=== PATIENT | male | born 1980 | race Caucasian/White ===

== ENCOUNTER 2022-06-23 00:22 | Emergency (ER) | payer SELFPAY ==
[2022-06-23] MEDS ORDERED: RT-ALBUTEROL HFA 8.5 GM INHALER IH STA (01:32)
[2022-06-23 02:11] VITALS: BP 129/92
--- NOTE | 2022-06-23 02:14 | ED General ---
General Chief Complaint: Cough/Cold/Flu Symptoms Stated Complaint: COUGH / CONGESTION Nursing Triage Note: PT ARRIVAL TO ER VIA PRIVATE VEHICLE FROM HOME WITH COMPLAINT OF COUGH/CONGESTION X5 DAYS. PT SEEN AT URGENT CARE AND STARTED ON PREDNISONE AND TESSALON PERLES FOR THE COUGH. PATIENT STATES THAT HE WAS STARTED ON THEM THURSDAY AND WAS TOLD IF NO BETTER COME BACK THURSDAY. Source of Information: Patient Exam Limitations: No Limitations History of Present Illness Date Seen by Provider: Jun 23, 2022 Time Seen by Provider: 00:30 Initial Comments This 41-year-old gentleman presents to the emergency room with complaints of shortness of breath and a heaviness of breathing, particularly when he lays flat. He has had flulike symptoms for the past 5 days including cough, congestion, shortness of breath, headache, body aches, and nausea. He reports testing in the clinic was negative for COVID and flu. He was prescribed Tessalon Perles and prednisone. Allergies and Home Medications Allergies Coded Allergies: No Known Drug Allergies (Unverified , 06/23/22) Patient Home Medication List Home Medication List Reviewed: Yes Review of Systems Review of Systems Constitutional: no symptoms reported EENTM: see HPI Respiratory: see HPI Cardiovascular: no symptoms reported Gastrointestinal: see HPI Genitourinary: no symptoms reported Musculoskeletal: no symptoms reported Skin: no symptoms reported Psychiatric/Neurological: See HPI Hematologic/Lymphatic: No Symptoms Reported Immunological/Allergic: no symptoms reported Past Zrbbklj-Wticty-Nuetmd Hx Patient Social History Tobacco Use?: Yes Tobacco type used: Cigarettes Smoking Status: Current Everyday Smoker Use of E-Cig and/or Vaping dev: No Substance use?: Yes Substance type: Marijuana Substance frequency: Once in a while Alcohol Use?: No Pt feels they are or have been: No Immunizations Up To Date Influenza Vaccine Up-to-Date: Yes; Up-to-Date Second COVID19 Vaccination Abdoulaye: UNKNOWN COVID19 Vaccine Certified Medical Technician: MODERNA Past Medical History Surgeries: Yes Orthopedic (Knee) Respiratory: No Cardiac: No Neurological: No Genitourinary: No Gastrointestinal: No Musculoskeletal: No Endocrine: No HEENT: No Cancer: No Psychosocial: No Physical Exam Vital Signs Vital Signs - First Documented Capillary Refill : Less Than 3 Seconds Height, Weight, BMI Height: '" Weight: lbs. oz. kg; BMI Method: General Appearance: No Apparent Distress, WD/WN, Obese HEENT: PERRL/EOMI, TMs Normal, Normal ENT Inspection, Pharynx Normal Neck: Normal Inspection; No JVD Respiratory: No Accessory Muscle Use, No Respiratory Distress, Wheezing Cardiovascular: Regular Rate, Rhythm, No Edema, No Murmur Gastrointestinal: Non Tender, Soft Extremity: Normal Inspection, No Pedal Edema Neurologic/Psychiatric: Alert, Oriented x3, No Motor/Sensory Deficits, Normal Mood/Affect Skin: Normal Color, Warm/Dry Progress/Results/Core Measures Suspected Sepsis SIRS Temperature: Pulse: 93 Respiratory Rate: 16 Blood Pressure 125 /93 Mean: 104 Results/Orders Lab Results Laboratory Tests Test 06/23/22 01:06 Range/Units Influenza Type A (RT-PCR) Not Detected Not Detecte Influenza Type B (RT-PCR) Not Detected Not Detecte SARS-CoV-2 RNA (RT-PCR) Not Detected Not Detecte My Orders Orders - KYLE LANDIS MD Covid 19 Inhouse Test (06/23/22 00:30) Influenza A And B By Pcr (06/23/22 00:30) Albuterol Inhaler (Albuterol) (06/23/22 01:32) Vital Signs/I&O 06/23/22 06/23/22 06/23/22 00:48 00:48 02:11 Temp 36.4 Pulse 93 84 Resp 16 16 B/P (MAP) 125/93 (104) 129/92 Pulse Ox 97 99 O2 Delivery Room Air Room Air Room Air Capillary Refill : Less Than 3 Seconds Blood Pressure Mean: 104 Progress Note : Progress Note Patient was treated with an albuterol inhaler with significant improvement. Flu and COVID test were negative. See discharge instructions for further discussion. Departure Impression Primary Impression: Acute bronchitis Qualified Codes: J20.9 - Acute bronchitis, unspecified Additional Impression: Wheezing Disposition: 01 HOME, SELF-CARE Condition: Improved Departure-Patient Inst. Decision time for Depature: 02:09 Referrals: [facility] (PCP/Family) Primary Care Physician Patient Instructions: How to Use a Metered Dose Inhaler ED, Bronchitis, Adult ED, Wheezing Add. Discharge Instructions: Your symptoms are most likely caused by a viral illness. The prednisone and inhaler should help you get through that illness and reduce your wheezing. Use the inhaler up to 4 puffs every 4 hours as needed for wheezing or shortness of breath. Do not exceed 4 puffs in a day 4-hour block of time. If you find yourself needing more doses, return to care for further evaluation. Smoking and dust exposure at work likely also are contributing factors. Work toward quitting smoking as fast as possible. Seek help from a primary care provider if needed to help you quit. Wear the available masks at work to reduce dust inhalation. If you think there may be an environmental component with allergies as well, you may try using an allergy medication such as Claritin (loratadine), Zyrtec (cetirizine), etc. Follow-up with your doctor or return to the ER if you have worsening symptoms despite following these instructions. All discharge instructions reviewed with patient and/or family. Voiced understanding. KYLE LANDIS MD Jun 23, 2022 02:14
== END 2022-06-23 02:23 | disposition home or self-care (01) ==
LOC: ER 00:25
DX: J20.9 Acute bronchitis, unspecified (principal); F17.210 Nicotine dependence, cigarettes, uncomplicated; Z20.822 Contact with and (suspected) exposure to COVID-19
CPT/HCPCS: 87636; 99283

== ENCOUNTER 2022-11-19 11:27 | Emergency (ER) | payer OTHER ==
[~2022-11-19] VITALS: Ht 175 cm; Wt 120.0 kg
--- NOTE | 2022-11-19 11:52 | ED Back Pain ---
General Chief Complaint: Back Problems Stated Complaint: LOWER BACK PAIN Nursing Triage Note: LOW MID TO RIGHT LOWER BACK PAIN X2 WEEKS. Source of Information: Patient Exam Limitations: No Limitations (ANANDA SMITH) History of Present Illness Date Seen by Provider: November 19, 2022 Time Seen by Provider: 11:50 Initial Comments Patient is a 42-year-old male presents ED with low back pain. Back pain started around 2 weeks ago. No trauma or known injury. States he has been picking heavy object at work but cannot recall any specific injury. Pain radiates from the spine to the flanks lower back. Worse with bending over, standing or movement. Gets relief when he sits down. No distal numbness and tingling to lower extremities, leg weakness, bowel or urine incontinence or saddle paresthesia. Denies taking thing for pain. No fever, night sweats, history of cancer. Denies any drug use. Denies of any hematuria, dysuria, fever, chills or history of kidney stones (ANANDA SMITH) Allergies and Home Medications Allergies Coded Allergies: No Known Drug Allergies (Unverified , 06/23/22) Patient Home Medication List Home Medication List Reviewed: Yes (ANANDA SMITH) Cyclobenzaprine HCl (Cyclobenzaprine HCl) 10 Mg Tablet, 10 MG PO TID Prescribed by: CARMEN HUTSON on 11/19/22 1230 Naproxen (Naproxen) 500 Mg Tablet, 500 MG PO Q12H Prescribed by: CARMEN HUTSON on 11/19/22 1230 Review of Systems Constitutional: No chills, No diaphoresis EENTM: No blurred vision, No double vision Respiratory: No cough, No dyspnea on exertion Cardiovascular: No chest pain Gastrointestinal: No abdominal pain, No diarrhea, No nausea Musculoskeletal: back pain, joint pain; No joint swelling; muscle pain Skin: No change in color, No change in hair/nails (ANANDA SMITH) All Other Systems Reviewed Negative Unless Noted: Yes (ANANDA SMITH) Past Toeesks-Bkurzh-Hdrmwd Hx Patient Social History Tobacco Use?: Yes Tobacco type used: Cigarettes Substance use?: Yes Substance type: Marijuana Alcohol Use?: No (ANANDA SMITH) Immunizations Up To Date Second COVID19 Vaccination Abdoulaye: UNKNOWN COVID19 Vaccine Management Trainee: UNKNOWN (ANANDA SMITH) Past Medical History Surgeries: Yes Orthopedic Respiratory: No Cardiac: No Neurological: No Genitourinary: No Gastrointestinal: No Musculoskeletal: No Endocrine: No HEENT: No Cancer: No Psychosocial: No (ANANDA SMITH) Physical Exam Vital Signs Vital Signs - First Documented 11/19/22 11:35 Temp 36.5 Pulse 100 Resp 16 B/P (MAP) 117/85 (96) Pulse Ox 98 O2 Delivery Room Air (KYLE LANDIS MD) Vital Signs Capillary Refill : Less Than 3 Seconds (ANANDA SMITH) Height, Weight, BMI Height: '" Weight: lbs. oz. kg; 39.00 BMI Method: General Appearance: No Apparent Distress, WD/WN HEENT: PERRL/EOMI, TMs Normal, Normal ENT Inspection Neck: Full Range of Motion, Normal Inspection, Non Tender Cardiovascular: Regular Rate, Rhythm, No Edema, No Gallop, No JVD Respiratory: Chest Non Tender, Lungs Clear, Normal Breath Sounds, No Accessory Muscle Use Gastrointestinal: Normal Bowel Sounds, No Organomegaly, No Pulsatile Mass, Non Tender, Soft Back: Vertebral Tenderness (Lumbar midline tenderness. Pain with flexion. No swelling, or redness. No flank tenderness. No left or right lower lumbar paraspinal muscle tenderness) Extremity: Normal Capillary Refill, Normal Inspection, Normal Range of Motion, Non Tender, Other Neurologic/Psychiatric: Alert, Oriented x3, No Motor/Sensory Deficits, Normal Mood/Affect, state's attorney II-XII Norm as Tested Skin: Warm/Dry (ANANDA SMITH) Progress/Results/Core Measures Results/Orders Lab Results Laboratory Tests Test 11/19/22 11:48 Range/Units Urine Color YELLOW Urine Clarity CLEAR Urine pH 6.0 5-9 Urine Specific [place] >=1.030 1.016-1.022 Urine Protein NEGATIVE NEGATIVE Urine Glucose (UA) NEGATIVE NEGATIVE Urine Ketones NEGATIVE NEGATIVE Urine Nitrite NEGATIVE NEGATIVE Urine Bilirubin NEGATIVE NEGATIVE Urine Urobilinogen 0.2 < = 1.0 MG/DL Urine Leukocyte Esterase NEGATIVE NEGATIVE Urine RBC (Auto) NEGATIVE NEGATIVE Urine RBC RARE /HPF Urine WBC NONE /HPF Urine Squamous Epithelial Cells RARE /HPF Urine Crystals NONE /LPF Urine Bacteria NEGATIVE /HPF Urine Casts NONE /LPF Urine Mucus SMALL H /LPF Urine Culture Indicated NO (KYLE LANDIS MD) Vital Signs/I&O 11/19/22 11/19/22 11:35 13:10 Temp 36.5 Pulse 100 91 Resp 16 B/P (MAP) 117/85 (96) 108/75 Pulse Ox 98 96 O2 Delivery Room Air Room Air (KYLE LANDIS MD) Blood Pressure Mean: 96 Departure Communication (PCP) Patient is a 42-year-old male who presents to the ED for lower back pain. Cannot recall any specific injury. No bowel or urine incontinence, saddle paresthesia. No neurological red flag findings. No fever, night sweats, history of cancer. Due to current complaint urinalysis was ordered to rule out hematuria which was negative. No radiating pain to the abdomen suggesting urolithiasis. No fever or urinary symptoms suggesting pyelonephritis, cystitis. CT scan of his lower spine secondary to increasing pain and radiating to the flank was positive for right-sided spondylolysis at L5-S1. No acute bony abno rmality. Patient was given dose of Toradol, Norflex and hydrocodone with some improvement of pain. Suspect more chronic finding. Discussed these results with patient. Recommend rest for the next 2 weeks. Discussed anti- inflammatories and muscle relaxers. Do not work with muscle relaxers. Recommend stretching. Pain likely from overuse. Potential muscular component. No sciatica or radiculopathy type pain at this time. Discussed ice and heat. Will discharge with anti-inflammatories. Outpatient follow-up with your primary care physician within the next week for further evaluation. Provided work note. Return precaution were discussed. (ANANDA SMITH) Impression Primary Impression: Back pain Additional Impression: Spondylolysis Disposition: 01 HOME, SELF-CARE Condition: Stable Departure-Patient Inst. Decision time for Depature: 12:29 (ANANDA SMITH) Referrals: [facility] (PCP/Family) Primary Care Physician Patient Instructions: Spondylolysis Add. Discharge Instructions: Recommend rest, stretching, anti-inflammatories to help with pain. Do not use Flexeril while at work. Recommend follow-up your PCP in 1 week for further evaluation. May require PT or further imaging. All discharge instructions reviewed with patient and/or family. Voiced understanding. Scripts Cyclobenzaprine HCl (Cyclobenzaprine HCl) 10 Mg Tablet 10 MG PO TID, #20 TAB Prov: ANANDA SMITH 11/19/22 Naproxen (Naproxen) 500 Mg Tablet 500 MG PO Q12H, #20 TAB Prov: ANANDA SMITH 11/19/22 Work/School Note: Work Release Form Date Seen in the Emergency Department: November 19, 2022 Return to Work: November 24, 2022 Restrictions: When returning to work recommend limiting walking, lifting for two weeks ATTENDING PHYSICIAN NOTE: I was physically present as attending physician in the emergency department during the care of this patient, but I was not directly involved in the decision making or delivery of care for this patient. (KYLE LANDIS MD) ANANDA SMITH November 19, 2022 11:52 KYLE LANDIS MD November 21, 2022 06:25
[2022-11-19] MEDS ORDERED: ORPHENADRINE 60 MG/2 ML (NORFLEX) AMP (ED ONLY) IM ONE (12:00)
[2022-11-19] MEDS ORDERED: HYDROcodone/APAP 5 MG/325 MG (LORTAB) TAB PO ONE (12:00)
[2022-11-19] MEDS ORDERED: KETOROLAC 30 MG/ML VIAL IVP ONE (12:00)
[2022-11-19 12:08] LABS: BILIRUBIN,URINE NEGATIVE (NEGATIVE); CLARITY,URINE CLEAR; COLOR,URINE YELLOW; GLUCOSE, URINE (UA) NEGATIVE (NEGATIVE); KETONES,URINE NEGATIVE (NEGATIVE); LEUKOCYTE ESTERASE ,URINE NEGATIVE (NEGATIVE); NITRITE,URINE NEGATIVE (NEGATIVE); PROTEIN,URINE NEGATIVE (NEGATIVE)
[2022-11-19 12:17] LABS: BACTERIA,URINE NEGATIVE /HPF; RBC,URINE RARE /HPF; SQUAMOUS EPITHELIAL CELL,UR RARE /HPF
--- NOTE | 2022-11-19 12:19 | Diagnostic Imaging Report ---
PROCEDURE: CT lumbar spine without contrast. TECHNIQUE: Multiple contiguous axial images were obtained through the lumbar spine without the use of intravenous contrast. Sagittal and coronal reformations were then performed. Auto Exposure Controls were utilized during the CT exam to meet ALARA standards for radiation dose reduction. INDICATION: Low back pain. No prior studies are available for comparison. FINDINGS: Curvature and alignment of the lumbar spine is normal. The vertebral body heights and disc spaces are fairly well maintained. No fracture or subluxation is identified. Patient does have a spondylolysis on the right side at the L5-S1 level. No spondylolisthesis is seen. IMPRESSION: Right-sided spondylolysis at L5-S1. No acute bony abnormality is detected. Dictated by: Dictated on workstation # [id number]
[2022-11-19] MEDS ORDERED: CYCL10TA25 PO (12:30)
[2022-11-19] MEDS ORDERED: NAPR-915 PO (12:30)
[2022-11-19 13:10] VITALS: BP 108/75
== END 2022-11-19 13:10 | disposition home or self-care (01) ==
LOC: EDUNIT# 11:27 → ER 11:31
DX: M47.817 Spondylosis without myelopathy or radiculopathy, lumbosacral region (principal); F17.210 Nicotine dependence, cigarettes, uncomplicated
CPT/HCPCS: 72131; 81000

== ENCOUNTER 2022-12-30 10:45 | Emergency (ER) | payer OTHER ==
[~2022-12-30] VITALS: Ht 172 cm; Wt 124.7 kg
[~2022-12-30 10:45] MED LIST: CYCL10TA25 PO; NAPR-915 PO
[2022-12-30 11:15] VITALS: BP_DIAS 92
--- NOTE | 2022-12-30 11:40 | ED Back Pain ---
General Chief Complaint: Back Problems Stated Complaint: LOWER BACK PAIN Nursing Triage Note: PT AMB TO [facility] 10 WITH C/O L LOW BACK PAIN FOR ALMOST 2 WEEKS. PT STATES IT STARTED ON THE R SIDE AND HAS NOW MOVED TO THE L THIS MORNING. PT SEEN AT [facility] 2 WEEKS AGO AND GIVEN NAPROXEN Source of Information: Patient Exam Limitations: No Limitations History of Present Illness Date Seen by Provider: Dec 30, 2022 Time Seen by Provider: 11:20 Initial Comments 42-year-old male presents to the ER with complaints of right lower back pain for the last week. Denies any known injury. He states that this morning he woke up and had pain in his left flank/side. He states that movement makes the pain w orse as well as getting up after sitting for a little while. He states that he has been resting and taking ibuprofen, last dose was yesterday. Patient was seen here approximately 1 month ago for lower back pain. He had a CT scan that showed spondylosis of L5-S1 on the right side. He denies urinary or bowel incontinence. Does report feeling as though his left lower leg wants to fall asleep. Patient is ambulatory. He was seen by Dr. Rinaldi last week and prescribed meloxicam and Flexeril. Patient states the last dose he took was yesterday. He denies fevers, abdominal pain, nausea, vomiting, dysuria, hematuria. He does report small amounts of diarrhea. States his last bowel movement was this morning and was soft. He states that normally he has a bowel movement 1-2 times a day, but over the last week he has only had a bowel movement approximately once every other day and the bowel movements are small. Past medical history includes bipolar disorder. Allergies and Home Medications Allergies Coded Allergies: No Known Drug Allergies (Unverified , 06/23/22) Patient Home Medication List Home Medication List Reviewed: Yes Cyclobenzaprine HCl (Cyclobenzaprine HCl) 10 Mg Tablet, 10 MG PO TID Prescribed by: CARMEN HUTSON on 11/19/22 1230 Methylprednisolone (Methylprednisolone Dose Pack) 4 Mg Tab.ds.pk, 4 MG PO UD Prescribed by: Niki Hathaway on 12/30/22 1240 Naproxen (Naproxen) 500 Mg Tablet, 500 MG PO Q12H Prescribed by: CARMEN HUTSON on 11/19/22 1230 Review of Systems Constitutional: see HPI Past Edofxng-Njajhm-Kkgvke Hx Patient Social History Tobacco Use?: Yes Tobacco type used: Cigarettes Substance use?: Yes Substance type: Marijuana Alcohol Use?: Yes Alcohol Frequency: Rarely Pt feels they are or have been: No Immunizations Up To Date First/Initial COVID19 Vaccinat: UNKNOWN Second COVID19 Vaccination Abdoulaye: UNKNOWN Third COVID19 Vaccination Date: UNKNOWN Past Medical History Surgery/Hospitalization HX: BIPOLAR, HTN R KNEE SURGERY Surgeries: Yes Orthopedic Respiratory: No Cardiac: No Neurological: No Genitourinary: No Gastrointestinal: No Musculoskeletal: No Endocrine: No HEENT: No Cancer: No Psychosocial: No Physical Exam Vital Signs Vital Signs - First Documented 12/30/22 11:15 Temp 36.5 Pulse 89 Resp 16 B/P (MAP) 129/92 (104) Pulse Ox 97 O2 Delivery Room Air Capillary Refill : Height, Weight, BMI Height: '" Weight: lbs. oz. kg; 42.00 BMI Method: General Appearance: No Apparent Distress, WD/WN Neck: Full Range of Motion, Normal Inspection, Non Tender, Supple Cardiovascular: Regular Rate, Rhythm Respiratory: Lungs Clear, Normal Breath Sounds, No Accessory Muscle Use, No Respiratory Distress Back: No Vertebral Tenderness, Other (Tenderness with palpitation in right lower back, no tenderness over left lower back/side) Extremity: Normal Inspection, Normal Range of Motion Neurologic/Psychiatric: Alert, Normal Mood/Affect Skin: Normal Color, Warm/Dry Progress/Results/Core Measures Results/Orders My Orders Orders - NIKI HATHAWAY APRN Ketorolac Injection (Toradol Injection) (12/30/22 11:45) Orphenadrine Inj (Ed Only) (Norflex Inje (12/30/22 11:45) Dexamethasone Injection (Decadron Inje (12/30/22 11:45) Medications Given in ED Current Medications Medications Dose Ordered Sig/Erasto Route Start Time Stop Time Status Last Admin Dose Admin Dexamethasone Sodium Phosphate 8 mg ONCE ONCE IM 12/30/22 11:45 12/30/22 11:46 DC 12/30/22 11:57 8 MG Ketorolac Tromethamine 30 mg ONCE ONCE IM 12/30/22 11:45 12/30/22 11:46 DC 12/30/22 11:56 30 MG Orphenadrine Citrate 60 mg ONCE ONCE IM 12/30/22 11:45 12/30/22 11:46 DC 12/30/22 11:57 60 MG Vital Signs/I&O 12/30/22 12/30/22 11:15 13:00 Temp 36.5 Pulse 89 86 Resp 16 18 B/P (MAP) 129/92 (104) 84/ Pulse Ox 97 96 O2 Delivery Room Air Room Air Blood Pressure Mean: 104 Progress Progress Note : Progress Note Patient seen and evaluated, resting comfortably in bed, no acute distress. Based on exam and symptoms, Toradol, Norflex, Decadron ordered. 1235 patient reports some improvement in pain after medications. Patient already has meloxicam and Flexeril at home. Will discharge with prescription for Medrol Dosepak. Patient instructed to apply heat or ice and to do back stretches and rest. Discharge instructions and return precautions provided. Departure Impression Primary Impression: Chronic back pain Qualified Codes: M54.50 - Low back pain, unspecified; G89.29 - Other chronic pain Disposition: HOME, SELF-CARE Condition: Stable Departure-Patient Inst. Decision time for Depature: 12:36 Referrals: [facility] (PCP/Family) Primary Care Physician Patient Instructions: Low Back Pain (DC) Add. Discharge Instructions: Take the Medrol Dosepak as prescribed. Continue taking your Flexeril as needed for pain. Continue taking meloxicam, do not take ibuprofen or naproxen when you are taking meloxicam. You should rest for the next week to improve your back pain. You may try to ice or heat your back whichever feels better. Do stretching exercises to stretch her back. Return for inability to walk, urinary or bowel incontinence, numbness or tingling in your inner thighs or groin, or any other new, concerning, or worsening symptoms. All discharge instructions reviewed with patient and/or family. Voiced understanding. Scripts Methylprednisolone (Methylprednisolone Dose Pack) 4 Mg Tab.ds.pk 4 MG PO UD for 6 Days, #21 PKG 0 Refills PER DOSE PACK INSTRUCTIONS Prov: NIKI HATHAWAY APRN 12/30/22 Work/School Note: Work Release Form Date Seen in the Emergency Department: Dec 30, 2022 Return to Work: Jan 06, 2023 Restrictions: No Restrictions NIKI HATHAWAY APRN Dec 30, 2022 11:40
[2022-12-30] MEDS ORDERED: KETOROLAC 30 MG/ML VIAL IM ONE (11:45)
[2022-12-30] MEDS ORDERED: ORPHENADRINE 60 MG/2 ML (NORFLEX) AMP (ED ONLY) IM ONE (11:45)
[2022-12-30] MEDS ORDERED: METH4TAB10 PO (12:40)
[2022-12-30 13:00] VITALS: BP_SYST 84
== END 2022-12-30 13:00 | disposition home or self-care (01) ==
LOC: EDUNIT# 10:45 → ER 10:48
DX: M54.50 Low back pain, unspecified (principal); G89.29 Other chronic pain; F17.210 Nicotine dependence, cigarettes, uncomplicated
CPT/HCPCS: 99284

== ENCOUNTER 2023-02-18 13:46 | Emergency (ER) | payer SELFPAY ==
[~2023-02-18] VITALS: Ht 175 cm; Wt 127.0 kg
[~2023-02-18 13:46] MED LIST changes: +METH4TAB10 PO
[2023-02-18] MEDS ORDERED: KETOROLAC 30 MG/ML VIAL IVP ONE (14:00)
--- NOTE | 2023-02-18 14:01 | ED Abdominal Pain ---
General Chief Complaint: Abdominal/GI Problems Stated Complaint: ABD PAIN | LT SIDE PAIN Nursing Triage Note: PT AMB TO RM 6 PT CO OF L SIDED ABD PAIN 7/10. PT DENIES N/V/D. Source of Information: Patient Exam Limitations: No Limitations History of Present Illness Date Seen by Provider: Feb 18, 2023 Time Seen by Provider: 13:59 Initial Comments Patient is a 42-year-old male who presents ED with pain to the left side of his abdomen. Pain is described as dull and constant. Rates pain 7 out of 10. Denies increasing pain. No radiating pain to his testicles or his left flank. Reports dark urine without any pain with urination, frequent urination. Denies any nausea, vomit, diarrhea. Has been taking ibuprofen with some improvement. Denies any pain in the back. No rating pain to his lower extremities. No history of previous abdominal surgery. Denies fever, chills, chest pain, shortness of breath, headache or dizziness. Denies of any specific injury. Allergies and Home Medications Allergies Coded Allergies: No Known Drug Allergies (Unverified , 06/23/22) Patient Home Medication List Home Medication List Reviewed: Yes Cyclobenzaprine HCl (Cyclobenzaprine HCl) 10 Mg Tablet, 10 MG PO TID Prescribed by: CARMEN HUTSON on 11/19/22 1230 Methylprednisolone (Methylprednisolone Dose Pack) 4 Mg Tab.ds.pk, 4 MG PO UD Prescribed by: Niki Hathaway on 12/30/22 1240 Naproxen (Naproxen) 500 Mg Tablet, 500 MG PO Q12H Prescribed by: CARMEN HUTSON on 11/19/22 1230 Review of Systems Review of Systems Constitutional: No chills, No diaphoresis, No malaise, No weakness EENTM: No Double Vision, No Eye Pain Respiratory: Denies Cough, Denies Orthopnea Gastrointestinal: Abdominal Pain; Denies Diarrhea, Denies Nausea, Denies Vomiting Genitourinary: Denies Burning, Denies Discharge, Denies Drainage, Denies Frequency, Denies Flank Pain Musculoskeletal: No back pain, No joint pain Skin: No change in color, No change in hair/nails All Other Systems Reviewed Negative Unless Noted: Yes Past Ztwijpj-Bniyfv-Fdgmdo Hx Patient Social History Tobacco Use?: Yes Tobacco type used: Cigarettes Smoking Status: Current Everyday Smoker Substance use?: Yes Substance type: Marijuana Substance frequency: Couple times a week Alcohol Use?: No Immunizations Up To Date First/Initial COVID19 Vaccinat: UNKNOWN Second COVID19 Vaccination Abdoulaye: UNKNOWN Third COVID19 Vaccination Date: UNKNOWN Past Medical History Surgery/Hospitalization HX: BIPOLAR, HTN R KNEE SURGERY Surgeries: Yes Orthopedic Respiratory: No Cardiac: No Neurological: No Genitourinary: No Gastrointestinal: No Musculoskeletal: No Endocrine: No HEENT: No Cancer: No Psychosocial: No Physical Exam Vital Signs Vital Signs - First Documented 02/18/23 02/18/23 13:54 15:29 Temp 37.1 Pulse 97 Resp 18 B/P (MAP) 117/87 (97) Pulse Ox 94 O2 Delivery Room Air Capillary Refill : Less Than 3 Seconds Height/Weight/BMI Height: '" Weight: lbs. oz. kg; 41.00 BMI Method: General Appearance: WD/WN, no apparent distress HEENT: PERRL/EOMI, normal ENT inspection, TMs normal, pharynx normal Neck: non-tender, full range of motion, supple Respiratory: chest non-tender, lungs clear, normal breath sounds, no respiratory distress, no accessory muscle use Cardiovascular: regular rate, rhythm, no edema, no gallop, no JVD Gastrointestinal: normal bowel sounds, soft, no organomegaly, tenderness (Left- sided abdominal tenderness.) Extremities: normal range of motion, non-tender, normal inspection, no pedal edema, no calf tenderness Back: normal inspection, no CVA tenderness Neurologic/Psychiatric: supplemental nurse II-XII nml as tested, no motor/sensory deficits, alert, normal mood/affect, oriented x 3 Skin: normal color, warm/dry Progress/Results/Core Measures Results/Orders Lab Results Laboratory Tests Test 02/18/23 13:56 02/18/23 14:19 Range/Units White Blood Count 9.0 4.3-11.0 10^3/uL Red Blood Count 4.75 4.30-5.52 10^6/uL Hemoglobin 14.3 13.3-17.7 g/dL Hematocrit 43 40-54 % Mean Corpuscular Volume 90 80-99 fL Mean Corpuscular Hemoglobin 30 25-34 pg Mean Corpuscular Hemoglobin Concent 34 32-36 g/dL Red Cell Distribution Width 13.5 10.0-14.5 % Platelet Count 221 130-400 10^3/uL Mean Platelet Volume 10.1 9.0-12.2 fL Immature Granulocyte % (Auto) 0 % Neutrophils (%) (Auto) 62 42-75 % Lymphocytes (%) (Auto) 27 12-44 % Monocytes (%) (Auto) 8 0-12 % Eosinophils (%) (Auto) 3 0-10 % Basophils (%) (Auto) 0 0-10 % Neutrophils # (Auto) 5.6 1.8-7.8 10^3/uL Lymphocytes # (Auto) 2.4 1.0-4.0 10^3/uL Monocytes # (Auto) 0.7 0.0-1.0 10^3/uL Eosinophils # (Auto) 0.3 0.0-0.3 10^3/uL Basophils # (Auto) 0.0 0.0-0.1 10^3/uL Immature Granulocyte # (Auto) 0.0 0.0-0.1 10^3/uL Sodium Level 142 135-145 MMOL/L Potassium Level 3.9 3.6-5.0 MMOL/L Chloride Level 106 98-107 MMOL/L Carbon Dioxide Level 27 21-32 MMOL/L Anion Gap 9 5-14 MMOL/L Blood Urea Nitrogen 17 7-18 MG/DL Creatinine 0.91 0.60-1.30 MG/DL Estimat Glomerular Filtration Rate 109 BUN/Creatinine Ratio 19 Glucose Level 124 H 70-105 MG/DL Calcium Level 9.3 8.5-10.1 MG/DL Corrected Calcium 9.2 8.5-10.1 MG/DL Total Bilirubin 0.5 0.1-1.0 MG/DL Aspartate Amino Transf (AST/SGOT) 18 5-34 U/L Alanine Aminotransferase (ALT/SGPT) 14 0-55 U/L Alkaline Phosphatase 118 40-136 U/L Total Protein 7.6 6.4-8.2 GM/DL Albumin 4.1 3.2-4.5 GM/DL Lipase 10 8-78 U/L Urine Color YELLOW Urine Clarity CLEAR Urine pH 6.0 5-9 Urine Specific [place] 1.030 H 1.016-1.022 Urine Protein TRACE H NEGATIVE Urine Glucose (UA) NEGATIVE NEGATIVE Urine Ketones NEGATIVE NEGATIVE Urine Nitrite NEGATIVE NEGATIVE Urine Bilirubin 2+ H NEGATIVE Urine Urobilinogen 1 < = 1.0 MG/DL Urine Leukocyte Esterase NEGATIVE NEGATIVE Urine RBC (Auto) NEGATIVE NEGATIVE Urine RBC RARE /HPF Urine WBC RARE /HPF Urine Crystals NONE /LPF Urine Bacteria NEGATIVE /HPF Urine Casts NONE /LPF Urine Mucus MODERATE H /LPF Urine Culture Indicated NO My Orders Orders - ANANDA SMITH Cbc With Automated Diff (02/18/23 13:58) Comprehensive Metabolic Panel (02/18/23 13:58) Lipase (02/18/23 13:58) Ua Culture If Indicated (02/18/23 13:58) Ketorolac Injection (Toradol Injection) (02/18/23 14:00) Abdomen/Kub 1view (02/18/23 15:04) Medications Given in ED Current Medications Medications Dose Ordered Sig/Erasto Route Start Time Stop Time Status Last Admin Dose Admin Ketorolac Tromethamine 30 mg ONCE ONCE IVP 02/18/23 14:00 02/18/23 14:01 DC 02/18/23 14:13 30 MG Vital Signs/I&O 02/18/23 02/18/23 13:54 15:29 Temp 37.1 36.4 Pulse 97 64 Resp 18 B/P (MAP) 117/87 (97) 112/77 Pulse Ox 94 96 O2 Delivery Room Air Blood Pressure Mean: 97 Departure Communication (PCP) Differential diagnosis, urolithiasis, nephrolithiasis, UTI, muscular wall pain, colitis, diverticulitis. Patient is a 42-year-old male who presents ED with dull achy pain to his left sided abdomen. Pain constant over the past week. No vomiting or diarrhea fever chills body aches chest pain shortness of breath. No pain in his lower back. Pain does not radiate into his lower extremities. Denies of any fall or trauma. Very minimal tenderness. Does not appear in acute distress. CBC, CMP, urinalysis was ordered. CBC, CMP grossly unremarkable. Normal white blood count. Received Toradol with improvement of pain. Urinalysis without evidence of infection or hematuria. I was not able to get a urine sample from patient initially. Did order a KUB which did not show any obvious calcifications or obstruction. Discussed with patient this does not appear to be surgical. Due to reassuring lab work and length of pain without any GI symptoms such as vomiting, fever or diarrhea do not necessarily believe CT scan of the abdomen and pelvis is needed. Recommend anti-inflammatories. Recommend staying hydrated. Follow-up with PCP in 2 to 3 days for reevaluation. If any worsening symptoms or pain, fever, vomiting to return back to ED. Impression Primary Impression: Abdominal pain Disposition: HOME, SELF-CARE Condition: Stable Departure-Patient Inst. Decision time for Depature: 15:22 Referrals: [facility] [place] (PCP/Family) Primary Care Physician Patient Instructions: Abdominal Pain, Adult ED Add. Discharge Instructions: Recommend hydration. If increasing pain, fever to return back to ED. Follow-up with PCP in 2 to 3 days for reevaluation. Anti-inflammatories such as ibuprofen for pain All discharge instructions reviewed with patient and/or family. Voiced understanding. Work/School Note: Work Release Form Date Seen in the Emergency Department: Feb 18, 2023 Return to Work: Feb 20, 2023 ANANDA SMITH Feb 18, 2023 14:01
[2023-02-18 14:05] LABS: BASOPHILS % (AUTO) 0 % (0-10); EOSINOPHILS # (AUTO) 0.3 10^3/uL (0.0-0.3); EOSINOPHILS % (AUTO) 3 % (0-10); HEMATOCRIT 43 % (40-54); HEMOGLOBIN 14.3 g/dL (13.3-17.7); LYMPHOCYTES # (AUTO) 2.4 10^3/uL (1.0-4.0); LYMPHOCYTES % (AUTO) 27 % (12-44); MEAN CORPUSCULAR HEMOGLOBIN 30 pg (25-34); MEAN CORPUSCULAR HGB CONC 34 g/dL (32-36); MEAN CORPUSCULAR VOLUME 90 fL (80-99); MEAN PLATELET VOLUME 10.1 fL (9.0-12.2); MONOCYTES # (AUTO) 0.7 10^3/uL (0.0-1.0); MONOCYTES % (AUTO) 8 % (0-12); NEUTROPHILS # (AUTO) 5.6 10^3/uL (1.8-7.8); NEUTROPHILS % (AUTO) 62 % (42-75); PLATELET COUNT 221 10^3/uL (130-400)
[2023-02-18 14:14] LABS: ALBUMIN 4.1 GM/DL (3.2-4.5); POTASSIUM 3.9 MMOL/L (3.6-5.0)
[2023-02-18 14:15] LABS: CALCIUM 9.3 MG/DL (8.5-10.1)
[2023-02-18 14:16] LABS: TOTAL PROTEIN 7.6 GM/DL (6.4-8.2)
[2023-02-18 14:18] LABS: BILIRUBIN,TOTAL 0.5 MG/DL (0.1-1.0)
[2023-02-18 14:20] LABS: CREATININE SERUM 0.91 MG/DL (0.60-1.30)
[2023-02-18 15:15] LABS: CLARITY,URINE CLEAR; COLOR,URINE YELLOW; PROTEIN,URINE TRACE (NEGATIVE)
[2023-02-18 15:16] LABS: BACTERIA,URINE NEGATIVE /HPF; BILIRUBIN,URINE 2+ (NEGATIVE); GLUCOSE, URINE (UA) NEGATIVE (NEGATIVE); KETONES,URINE NEGATIVE (NEGATIVE); LEUKOCYTE ESTERASE ,URINE NEGATIVE (NEGATIVE); NITRITE,URINE NEGATIVE (NEGATIVE); RBC,URINE RARE /HPF; WBC,URINE RARE /HPF
--- NOTE | 2023-02-18 15:24 | Diagnostic Imaging Report ---
INDICATION: Left flank pain and left lower quadrant abdominal pain. FINDINGS: The bowel gas pattern is nonspecific. Lung bases are clear. No free air. There are no abnormal calcifications. IMPRESSION: Nonspecific bowel gas pattern. Dictated by: Dictated on workstation # [id number]
[2023-02-18 15:29] VITALS: BP 112/77
== END 2023-02-18 15:31 | disposition home or self-care (01) ==
LOC: EDUNIT# 13:46 → ER 13:48
DX: R10.9 Unspecified abdominal pain (principal); F17.210 Nicotine dependence, cigarettes, uncomplicated
CPT/HCPCS: 36415; 74018; 80053; 81000; 83690; 85025; 96374